=== PATIENT | male | born 1990 | race Caucasian/White ===

== ENCOUNTER 2016-08-18 22:34 | Emergency (ER) | payer OTHER | END 2016-08-19 01:47 | disposition home or self-care (01) | LOC: ER1 22:34 | DX: S62.397A Other fracture of fifth metacarpal bone, left hand, initial encounter for closed fracture (principal); F17.210 Nicotine dependence, cigarettes, uncomplicated; W22.09XA Striking against other stationary object, initial encounter; Y93.89 Activity, other specified; Y92.009 Unspecified place in unspecified non-institutional (private) residence as the place of occurrence of the external cause | CPT/HCPCS: 29125; 73130; 99283 ==

== ENCOUNTER 2022-02-15 17:32 | Emergency (ER) | payer OTHER ==
[2022-02-15 18:03] LABS: HEMOGLOBIN 15.4 gm/dl (14.0-17.5); RED BLOOD COUNT 5.17 M/UL (4.20-5.50); WHITE BLOOD COUNT 11.7 K/UL (4.5-11.0)
[2022-02-15 18:20] LABS: BUN/CREATININE RATIO 11 (0-10)
== END 2022-02-15 21:51 | disposition left against medical advice (07) ==
LOC: ER1 17:32
PROVIDERS: Physician Assistant Medical
DX: S70.311A Abrasion, right thigh, initial encounter (principal); R07.89 Other chest pain; R10.10 Upper abdominal pain, unspecified; R10.816 Epigastric abdominal tenderness; F17.210 Nicotine dependence, cigarettes, uncomplicated; V29.9XXA Motorcycle rider (driver) (passenger) injured in unspecified traffic accident, initial encounter; Y92.410 Unspecified street and highway as the place of occurrence of the external cause
CPT/HCPCS: 71045; 71260; 73590; 80053; 85025; 99283; Q9967